=== PATIENT | female | born 1960 | race Caucasian/White ===

== ENCOUNTER 2018-07-01 13:35 | Emergency (ER) | payer BC, OTHER ==
[2018-07-01] MEDS ORDERED: Sodium Chloride 0.9% 1000 ML 1,000 ML IV STA ×2 (14:05→15:31)
[2018-07-01] MEDS ORDERED: solu-MEDROL 125 MG IV ONE (14:05)
--- NOTE | 2018-07-01 14:05 | ERPHSYRPT ---
- History of Present Illness Time Seen by Provider: 07/01/18 13:55 Source: patient Exam Limitations: no limitations Patient Subjective Stated Complaint: n/v/d sunday night,sob due to congestion, weak,aches,vomited last sat morning, pt is drinking well Triage Nursing Assessment: pt alert, resp easy, skin w/d/p, abd soft, no edema, cough nonproductive Physician History: 58 y/o white female presents with 2 day h/o first n/v, followed by coughing, myalgias, arthralgias. family members have similar sx. no diarrhea. Timing/Duration: day(s) (2) Cough Quality/Degree: moderate, dry cough Possible Cause: no prior episodes Modifying Factors: Improves With: coughing Associated Symptoms: chest pain/soreness (with cough), wheezing International travel in last 2 weeks: No Allergies/Adverse Reactions: No Known Drug Allergies Allergy (Unverified 07/01/18 13:52) Home Medications: Aspirin EC 325 mg [Ecotrin 325 MG] 325 mg DAILY 07/01/18 [History] Losartan Potassium 50 mg [Cozaar 50 MG] 50 mg DAILY 07/01/18 [History] Hx Tetanus, Diphtheria Vaccination/Date Given: No Hx Influenza Vaccination/Date Given: No Hx Pneumococcal Vaccination/Date Given: No Immunizations Up to Date: Yes - Review of Systems Constitutional: No Symptoms Eyes: No Symptoms Ears, Nose, & Throat: No Symptoms Respiratory: Cough Cardiac: No Symptoms Abdominal/Gastrointestinal: Nausea, Vomiting Genitourinary Symptoms: No Symptoms Musculoskeletal: No Symptoms Skin: No Symptoms Neurological: No Symptoms Psychological: No Symptoms Endocrine: No Symptoms Hematologic/Lymphatic: No Symptoms Immunological/Allergic: No Symptoms All Other Systems: Reviewed and Negative - Past Medical History Pertinent Past Medical History: Yes Neurological History: No Pertinent History ENT History: No Pertinent History Cardiac History: Hypertension Respiratory History: No Pertinent History Endocrine Medical History: No Pertinent History Musculoskeletal History: No Pertinent History GI Medical History: No Pertinent History History: No Pertinent History Psycho-Social History: No Pertinent History Female Reproductive Disorders: No Pertinent History - Past Surgical History Past Surgical History: Yes Neuro Surgical History: No Pertinent History Cardiac: No Pertinent History Respiratory: No Pertinent History Gastrointestinal: No Pertinent History Genitourinary: No Pertinent History Musculoskeletal: No Pertinent History Female Surgical History: No Pertinent History Other Surgical History: 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 - Social History Smoking Status: Never smoker Exposure to second hand smoke: No Drug Use: none Patient Lives Alone: No - Female History Hx Last Menstrual Period: post Hx Now: No - Nursing Vital Signs Nursing Vital Signs: Initial Vital Signs Temperature 99.8 F 07/01/18 13:39 Pulse Rate 115 H 07/01/18 13:39 Respiratory Rate 22 07/01/18 13:39 Blood Pressure 132/102 07/01/18 13:39 O2 Sat by Pulse Oximetry 97 07/01/18 13:39 Pain Scale Pain Intensity 4 - Physical Exam General Appearance: mild distress, alert, anxiety, obese Eye Exam: PERRL/EOMI Ears, Nose, Throat Exam: normal ENT inspection, moist mucous membranes Neck Exam: normal inspection, non-tender, supple, full range of motion Respiratory Exam: airway intact, wheezing, No chest tenderness, No respiratory distress, No accessory muscle use, No rhonchi, No stridor Cardiovascular Exam: normal heart sounds, normal peripheral pulses, tachycardia Gastrointestinal/Abdomen Exam: soft, normal bowel sounds, No tenderness, No guarding, No rebound Pelvic Exam: not done Rectal Exam: not done Back Exam: normal inspection, normal range of motion, CVA tenderness Extremity Exam: normal inspection, normal range of motion, pelvis stable Neurologic Exam: alert, oriented x 3, cooperative, test deskman II-XII nml as tested Skin Exam: normal color Lymphatic Exam: No adenopathy SpO2 Interpretation: normal SpO2: 97 O2 Delivery: Room Air - Course Nursing assessment & vital signs reviewed: Yes EKG Interpreted by Me: RATE (109), Sinus Rhythm, NORMAL AXIS, Other (no comparison ekg) Ordered Tests: Active Orders 24 hr Category Date Time Status Lube Attendant STAT Care 07/01/18 14:06 Active EKG-ER Only STAT Care 07/01/18 14:05 Active IV Insertion STAT Care 07/01/18 14:05 Active Pulse Oximetry (ED) STAT Care 07/01/18 14:05 Active CHEST 1 VIEW (PORTABLE) Stat Exams 07/01/18 14:06 Completed BLOOD CULTURE Stat Lab 07/01/18 15:05 Received BMP Stat Lab 07/01/18 14:30 Completed CBC W DIFF Stat Lab 07/01/18 14:30 Completed NT PRO BNP Stat Lab 07/01/18 14:30 Completed Peak Expiratory Flow Rate ONCE RT 07/01/18 14:19 Active Respiratory Nebulizer STAT RT 07/01/18 14:10 Completed Respiratory Therapy Assessment DAILY RT 07/01/18 14:20 Active Medication Summary Generic Name Dose Route Start Last Admin Trade Name Freq PRN Reason Stop Dose Admin Sodium Chloride 1,000 mls @ 999 mls/hr 07/01/18 15:31 07/01/18 15:44 Sodium Chloride 0.9% 1000 Ml IV 07/01/18 16:31 999 mls/hr .Q1H1M STA Administration Discontinued Medications Generic Name Dose Route Start Last Admin Trade Name Freq PRN Reason Stop Dose Admin Hydrocodone Bitart/Acetaminophen 10 ml 07/01/18 14:07 07/01/18 14:19 Hydrocodone-Acetamin 2.5-108/5 Ml Solution PO 07/01/18 14:08 10 ml STAT STA Administration Hydrocodone Bitart/Acetaminophen Confirm 07/01/18 14:17 Hydrocodone-Acetamin 2.5-108/5 Ml Solution Administered 07/01/18 14:18 Dose 10 ml .ROUTE .STK-MED ONE Albuterol Sulfate 2.5 mg 07/01/18 14:10 07/01/18 14:16 Proventil 2.5 Mg/3 Ml Neb IH 07/01/18 14:11 2.5 mg STAT ONE Administration Albuterol Sulfate 2.5 mg 07/01/18 14:10 07/01/18 15:53 Proventil 2.5 Mg/3 Ml Neb IH 07/01/18 14:11 2.5 mg STAT ONE Administration Albuterol Sulfate Confirm 07/01/18 14:11 Proventil 2.5 Mg/3 Ml Neb Administered 07/01/18 14:12 Dose 2.5 mg IH .STK-MED ONE Albuterol Sulfate Confirm 07/01/18 15:51 Proventil 2.5 Mg/3 Ml Neb Administered 07/01/18 15:52 Dose 2.5 mg IH .STK-MED ONE Sodium Chloride 1,000 mls @ 999 mls/hr 07/01/18 14:05 07/01/18 15:48 Sodium Chloride 0.9% 1000 Ml IV 07/01/18 15:05 Infused .Q1H1M STA Infusion Sodium Chloride Confirm 07/01/18 14:17 Sodium Chloride 0.9% 1000 Ml Administered 07/01/18 14:18 Dose 1,000 mls @ ud .ROUTE .STK-MED ONE Sodium Chloride Confirm 07/01/18 15:38 Sodium Chloride 0.9% 1000 Ml Administered 07/01/18 15:39 Dose 1,000 mls @ ud .ROUTE .STK-MED ONE Methylprednisolone Sodium Succinate 125 mg 07/01/18 14:05 07/01/18 14:19 Solu-Medrol 125 Mg IV 07/01/18 14:06 125 mg STAT ONE Administration Methylprednisolone Sodium Succinate Confirm 07/01/18 14:17 Solu-Medrol 125 Mg Administered 07/01/18 14:18 Dose 125 mg .ROUTE .STK-MED ONE Ondansetron HCl 4 mg 07/01/18 14:07 07/01/18 14:19 Zofran 4 Mg/2 Ml Vial IV 07/01/18 14:08 4 mg STAT ONE Administration Ondansetron HCl Confirm 07/01/18 14:17 Zofran 4 Mg/2 Ml Vial Administered 07/01/18 14:18 Dose 4 mg .ROUTE .STK-MED ONE Oseltamivir Phosphate 75 mg 07/01/18 15:31 07/01/18 15:45 Tamiflu 75mg Capsule PO 07/01/18 15:32 75 mg STAT ONE Administration Oseltamivir Phosphate Confirm 07/01/18 15:38 Tamiflu 75mg Capsule Administered 07/01/18 15:39 Dose 75 mg PO .STK-MED ONE Lab/Rad Data: Laboratory Result Diagrams 07/01/18 14:30 07/01/18 14:30 Laboratory Results 07/01/18 07/01/18 07/01/18 Range/Units 14:30 14:30 14:30 WBC 4.4 (4.0-10.5) K/mm3 RBC 4.93 (4.1-5.4) M/mm3 Hgb 15.7 (12.0-16.0) gm/dl Hct 45.9 (35-47) % MCV 93.1 (78-100) fl MCH 31.8 (26-32) pg MCHC 34.2 (32-36) g/dl RDW 13.7 (11.5-14.0) % Plt Count 165 (150-450) K/mm3 MPV 10.9 H (6-9.5) fl Gran % 77.1 H (36.0-66.0) % Eos # (Auto) 0.01 (0-0.5) Absolute Lymphs (auto) 0.54 L (1.0-4.6) Absolute Monos (auto) 0.44 (0.0-1.3) Lymphocytes % 12.4 L (24.0-44.0) % Monocytes % 10.1 (0.0-12.0) % Eosinophils % 0.2 (0.00-5.0) % Basophils % 0.2 (0.0-0.4) % Absolute Granulocytes 3.36 (1.4-6.9) Basophils # 0.01 (0-0.4) Sodium 136 L (137-145) mmol/L Potassium 3.6 (3.5-5.1) mmol/L Chloride 98 (98-107) mmol/L Carbon Dioxide 28 (22-30) mmol/L Anion Gap 13.3 (5-15) MEQ/L BUN 7 (7-17) mg/dL Creatinine 0.73 (0.52-1.04) mg/dL Estimated GFR > 60.0 ML/MIN Glucose 96 (74-106) mg/dL Calcium 9.3 (8.4-10.2) mg/dL NT-Pro-B Natriuret Pep 32.5 (0-900) pg/mL Influenza Type A Ag POSITIVE (NEGATIVE) Influenza Type B Ag NEGATIVE (NEGATIVE) RSV (PCR) NEGATIVE (Negative) - Progress Progress: improved Air Movement: good Progress Note: 07/01/18 15:39 cxr- no acute process. 07/01/18 16:14 pt states she is now hungry and thirsty. Blood Culture(s) Obtained: Yes Counseled pt/family regarding: lab results, diagnosis, need for follow-up, rad results - Departure Time of Disposition: 16:15 Departure Disposition: Home Clinical Impression: Influenza A H1N1 infection Condition: Stable Critical Care Time: No Referrals: CJ PRAJAPATI [Primary Care Provider] - Additional Instructions: drink plenty of fluids. follow up with primary doctor for further management. return to ED if symptoms worsen. Prescriptions: Albuterol 8 gm Mdi Hfa [Ventolin Hfa MDI] 8 gm IH Q4H #1 hfa.aer.ad Hydrocodone Bit/Acetaminophen [Hydrocodone-Acetaminophen Soln] 10 ml PO Q6H # 120 ml Oseltamivir 75 mg [Tamiflu 75MG Capsule] 75 mg PO BID #10 cap Prednisone 10 mg [Deltasone 10 mg] 10 mg PO TID #6 tablet
[2018-07-01] MEDS ORDERED: HYDROCODONE-ACETAMIN 2.5-108/5 ML SOLUTION PO STA (14:07)
[2018-07-01] MEDS ORDERED: Zofran 4 MG/2 ML VIAL IV ONE (14:07)
[2018-07-01] MEDS ORDERED: PROVENTIL 2.5 MG/3 ML NEB IH ONE ×4 (14:10→15:51)
[2018-07-01] MEDS ORDERED: solu-MEDROL 125 MG ONE (14:17)
[2018-07-01] MEDS ORDERED: HYDROCODONE-ACETAMIN 2.5-108/5 ML SOLUTION ONE (14:17)
[2018-07-01] MEDS ORDERED: Sodium Chloride 0.9% 1000 ML 1,000 ML ONE ×2 (14:17→15:38)
[2018-07-01] MEDS ORDERED: Zofran 4 MG/2 ML VIAL ONE (14:17)
--- NOTE | 2018-07-01 14:26 | XRAY ---
Indication: Fever, cough, and short of breath. Comparison: None Portable chest demonstrates minimal left base atelectasis/scarring. Remaining heart and lungs unremarkable. Incidental right-sided pacemaker with lead directed inferiorly and tip not included in the [id number]. Also right neck stimulator lead. Bony thorax intact with mild degenerative changes. Impression: Nonacute chest with chronic features.
[2018-07-01 14:48] LABS: BASOPHIL % 0.2 % (0.0-0.4); Basophil (Absolute #) 0.01 (0-0.4); Eosinophil % 0.2 % (0.00-5.0); Eosinophil (Absolute #) 0.01 (0-0.5); Granulocyte Absolute (ANC) 3.36 (1.4-6.9); Granulocytes % 77.1 % (36.0-66.0); Hematocrit 45.9 % (35-47); Hemoglobin 15.7 gm/dl (12.0-16.0); Lymphocyte (Absolute #) 0.54 (1.0-4.6); Lymphocytes % 12.4 % (24.0-44.0); Mean Cell Volume 93.1 fl (78-100); Mean Corpuscular Hemoglobin 31.8 pg (26-32); Mean Corpuscular Hgb Concent. 34.2 g/dl (32-36); Mean Platelet Volume 10.9 fl (6-9.5); Monocyte (Absolute #) 0.44 (0.0-1.3); Monocytes % 10.1 % (0.0-12.0); Platelet Count 165 K/mm3 (150-450); Red Blood Count 4.93 M/mm3 (4.1-5.4); Red Cell Distribution Width 13.7 % (11.5-14.0); White Blood Count 4.4 K/mm3 (4.0-10.5)
[2018-07-01 15:09] LABS: ANION GAP 13.3 MEQ/L (5-15); BLOOD UREA NITROGEN 7 mg/dL (7-17); CHLORIDE 98 mmol/L (98-107); Calcium 9.3 mg/dL (8.4-10.2); Carbon Dioxide 28 mmol/L (22-30); Creatinine 1 0.73 mg/dL (0.52-1.04); Glucose 96 mg/dL (74-106); NT PRO BNP 32.5 pg/mL (0-900); Potassium 3.6 mmol/L (3.5-5.1); SODIUM 136 mmol/L (137-145)
[2018-07-01 15:21] LABS: INFLUENZA A POSITIVE (NEGATIVE); INFLUENZA B NEGATIVE (NEGATIVE); RESPIRATORY SYNCTIAL VIRUS NEGATIVE (Negative)
[2018-07-01] MEDS ORDERED: Tamiflu 75MG Capsule PO ONE ×2 (15:31→15:38)
[2018-07-01] MEDS ORDERED: ROCEPHIN 1 Gm-D5w 50 ml Bag** 0 G/0 ML IVPB IV ONE (16:13)
[2018-07-01] MEDS ORDERED: TYLENOL EXTRA STRENGTH 500 MG PO STA (16:44)
[2018-07-01] MEDS ORDERED: TYLENOL EXTRA STRENGTH 500 MG ONE ×2 (16:46→16:50)
[2018-07-01 16:53] VITALS: BP 129/68; PULSE 110; O2SAT 93
== END 2018-07-01 17:28 | disposition home or self-care (01) ==
LOC: ED 13:35
DX: J10.1 Influenza due to other identified influenza virus with other respiratory manifestations (principal)
CPT/HCPCS: 36000; 36415; 71045; 80048; 83880; 85025; 87040; 87631; 93005; 93041; 94150; 94640; 96360; 96361; 96374; 96375; 99285; J0696; J2405; J2930; J7609; A9270-GY

== ENCOUNTER 2018-07-06 13:54 | Emergency (ER) | payer BC, OTHER ==
--- NOTE | 2018-07-06 14:18 | ERPHSYRPT ---
- History of Present Illness Time Seen by Provider: 07/06/18 14:16 Source: patient Exam Limitations: no limitations Patient Subjective Stated Complaint: pt here for increase sob since sunday, she was seen in er on sunday and has flu a . Triage Nursing Assessment: pt alert, resp easy, skin w/d/p. has wheezes throughtout, no edema noted Physician History: pt here for increase sob since sunday, she was seen in ER on sunday and has Influenza A Timing/Duration: week(s) Severity: moderate Associated Symptoms: shortness of breath, cough, headaches Allergies/Adverse Reactions: No Known Drug Allergies Allergy (Verified 07/06/18 14:10) Home Medications: Aspirin EC 325 mg [Ecotrin 325 MG] 325 mg DAILY 07/01/18 [History] Losartan Potassium 50 mg [Cozaar 50 MG] 50 mg DAILY 07/01/18 [History] Hx Tetanus, Diphtheria Vaccination/Date Given: No Hx Influenza Vaccination/Date Given: No Hx Pneumococcal Vaccination/Date Given: No Immunizations Up to Date: Yes - Review of Systems Constitutional: Fever, Chills, Weakness Eyes: No Symptoms Ears, Nose, & Throat: No Symptoms Respiratory: Cough, Wheezing, No Dyspnea Cardiac: No Chest Pain, No Edema, No Syncope Abdominal/Gastrointestinal: No Abdominal Pain, No Nausea, No Vomiting, No Diarrhea Genitourinary Symptoms: No Dysuria Musculoskeletal: No Back Pain, No Neck Pain Skin: No Rash Neurological: No Dizziness, No Focal Weakness, No Sensory Changes Psychological: No Symptoms Endocrine: No Symptoms All Other Systems: Reviewed and Negative - Past Medical History Pertinent Past Medical History: Yes Neurological History: No Pertinent History ENT History: No Pertinent History Cardiac History: Hypertension Respiratory History: No Pertinent History Endocrine Medical History: No Pertinent History Musculoskeletal History: No Pertinent History GI Medical History: No Pertinent History History: No Pertinent History Psycho-Social History: No Pertinent History Female Reproductive Disorders: No Pertinent History - Past Surgical History Past Surgical History: Yes Neuro Surgical History: No Pertinent History Cardiac: No Pertinent History Respiratory: No Pertinent History Gastrointestinal: No Pertinent History Genitourinary: No Pertinent History Musculoskeletal: No Pertinent History Female Surgical History: No Pertinent History Other Surgical History: 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 - Social History Smoking Status: Never smoker Exposure to second hand smoke: No Drug Use: none Patient Lives Alone: No - Female History Hx Last Menstrual Period: psot Hx Now: No - Nursing Vital Signs Nursing Vital Signs: Initial Vital Signs Temperature 97.5 F 07/06/18 13:58 Pulse Rate 120 H 07/06/18 13:58 Respiratory Rate 24 07/06/18 13:58 Blood Pressure 137/79 07/06/18 13:58 O2 Sat by Pulse Oximetry 92 L 07/06/18 13:58 Pain Scale Pain Intensity 0 - Physical Exam General Appearance: moderate distress, alert Eye Exam: PERRL/EOMI, eyes nml inspection Ears, Nose, Throat Exam: normal ENT inspection, TMs normal, pharynx normal, moist mucous membranes Neck Exam: normal inspection, non-tender, supple, full range of motion Respiratory Exam: diminished breath sounds, wheezing, No respiratory distress Cardiovascular Exam: regular rate/rhythm, normal heart sounds, normal peripheral pulses Gastrointestinal/Abdomen Exam: soft, normal bowel sounds, No tenderness, No mass Back Exam: normal inspection, normal range of motion, No CVA tenderness, No vertebral tenderness Extremity Exam: normal inspection, normal range of motion, pelvis stable Neurologic Exam: alert, oriented x 3, cooperative, normal mood/affect, nml cerebellar function, nml station & gait, sensation nml, No motor deficits Skin Exam: normal color, warm, dry, No rash Lymphatic Exam: No adenopathy SpO2: 94 - Course Nursing assessment & vital signs reviewed: Yes - Radiology Exams Chest X-ray Interpretation: Reviewed by me (no acute infiltrate) Ordered Tests: Active Orders 24 hr Category Date Time Status Oxygen-ED Only Nasal Cannula 2 lpm Care 07/06/18 14:11 Active CHEST 2 VIEWS (PA AND LAT) Stat Exams 07/06/18 14:12 Ordered CBC W DIFF Stat Lab 07/06/18 14:27 Completed CMP Stat Lab 07/06/18 14:27 Completed Manual Differential NC Stat Lab 07/06/18 14:27 Completed Peak Expiratory Flow Rate ONCE RT 07/06/18 14:31 Completed Respiratory Therapy Assessment DAILY RT 07/06/18 14:30 Completed Medication Summary Discontinued Medications Generic Name Dose Route Start Last Admin Trade Name Freq PRN Reason Stop Dose Admin Acetaminophen 650 mg 07/06/18 14:11 07/06/18 14:20 Tylenol 325 Mg PO 07/06/18 14:12 650 mg STAT ONE Administration Acetaminophen Confirm 07/06/18 14:20 Tylenol 325 Mg Administered 07/06/18 14:21 Dose 650 mg .ROUTE .STK-MED ONE Albuterol/Ipratropium 3 ml 07/06/18 14:11 07/06/18 14:25 Duoneb 0.5-3 Mg/3 Ml Neb IH 07/06/18 14:12 3 ml STAT ONE Administration Albuterol/Ipratropium Confirm 07/06/18 14:22 Duoneb 0.5-3 Mg/3 Ml Neb Administered 07/06/18 14:23 Dose 3 ml IH .STK-MED ONE Lab/Rad Data: Laboratory Result Diagrams 07/06/18 14:27 07/06/18 14:27 Laboratory Results 07/06/18 07/06/18 07/06/18 Range/Units 14:27 14:27 14:27 WBC 8.7 (4.0-10.5) K/mm3 RBC 4.14 (4.1-5.4) M/mm3 Hgb 13.1 (12.0-16.0) gm/dl Hct 37.7 (35-47) % MCV 91.1 (78-100) fl MCH 31.6 (26-32) pg MCHC 34.7 (32-36) g/dl RDW 13.3 (11.5-14.0) % Plt Count 224 (150-450) K/mm3 MPV 10.0 H (6-9.5) fl Segmented Neutrophils 80 H (36.0-66.0) % Lymphocytes (Manual) 18 L (24-44) % Monocytes (Manual) 1 (0.0-12.0) % Atypical Lymphocytes 1 % Toxic Granulation 1+ Platelet Estimate NORMAL (NORMAL) RBC Morphology NORMAL Sodium 136 L (137-145) mmol/L Potassium 3.4 L (3.5-5.1) mmol/L Chloride 99 (98-107) mmol/L Carbon Dioxide 29 (22-30) mmol/L Anion Gap 11.1 (5-15) MEQ/L BUN 9 (7-17) mg/dL Creatinine 0.60 (0.52-1.04) mg/dL Estimated GFR > 60.0 ML/MIN Glucose 107 H (74-106) mg/dL Calcium 9.1 (8.4-10.2) mg/dL Total Bilirubin 1.10 (0.2-1.3) mg/dL AST 20 (14-36) U/L ALT 31 (0-35) U/L Alkaline Phosphatase 124 (38-126) U/L Serum Total Protein 7.5 (6.3-8.2) g/dL Albumin 4.0 (3.5-5.0) g/dL Influenza Type A Ag NEGATIVE (NEGATIVE) Influenza Type B Ag NEGATIVE (NEGATIVE) RSV (PCR) NEGATIVE (Negative) - Progress Progress: unchanged Counseled pt/family regarding: diagnosis, need for follow-up - Departure Time of Disposition: 15:14 Departure Disposition: Home Clinical Impression: Influenza A H1N1 infection, Post-viral cough syndrome Condition: Stable Critical Care Time: No Referrals: CJ PRAJAPATI [Primary Care Provider] - Prescriptions: Hydrocod Psx/Chlor-Rigo [Tussionex Pennkinetic Susp] 5 ml PO BID #100 oralsyring MDD 20 ml
[2018-07-06] MEDS: TYLENOL 325 MG PO ONE (14:20)
[2018-07-06] MEDS ORDERED: TYLENOL 325 MG ONE (14:20)
[2018-07-06] MEDS ORDERED: DUONEB 0.5-3 MG/3 ml Neb IH ONE (14:22)
[2018-07-06] MEDS: DUONEB 0.5-3 MG/3 ml Neb IH ONE (14:25)
[2018-07-06 14:28] LABS: Hematocrit 37.7 % (35-47); Hemoglobin 13.1 gm/dl (12.0-16.0); Mean Cell Volume 91.1 fl (78-100); Mean Corpuscular Hemoglobin 31.6 pg (26-32); Mean Corpuscular Hgb Concent. 34.7 g/dl (32-36); Platelet Count 224 K/mm3 (150-450); Red Blood Count 4.14 M/mm3 (4.1-5.4); Red Cell Distribution Width 13.3 % (11.5-14.0); White Blood Count 8.7 K/mm3 (4.0-10.5)
[2018-07-06 14:38] LABS: ALKALINE PHOSPHATASE 124 U/L (38-126); ANION GAP 11.1 MEQ/L (5-15); BLOOD UREA NITROGEN 9 mg/dL (7-17); CHLORIDE 99 mmol/L (98-107); Calcium 9.1 mg/dL (8.4-10.2); Carbon Dioxide 29 mmol/L (22-30); Glucose 107 mg/dL (74-106); Potassium 3.4 mmol/L (3.5-5.1); SGOT/AST 20 U/L (14-36); SGPT/ALT 31 U/L (0-35); SODIUM 136 mmol/L (137-145); Total Protein 7.5 g/dL (6.3-8.2)
[2018-07-06 14:43] LABS: ATYPICAL LYMPHS 1 %; Lymphocytes 18 % (24-44); Monocyte 1 % (0.0-12.0); Neutrophils 80 % (36.0-66.0); Total Cells Counted 100
[2018-07-06 14:44] LABS: Platelet Estimate NORMAL (NORMAL); Toxic Granulation 1+
[2018-07-06 14:59] LABS: INFLUENZA A NEGATIVE (NEGATIVE); INFLUENZA B NEGATIVE (NEGATIVE); RESPIRATORY SYNCTIAL VIRUS NEGATIVE (Negative)
[2018-07-06 15:43] VITALS: BP 107/85; PULSE 110; O2SAT 95
--- NOTE | 2018-07-06 22:25 | XRAY ---
Indication: Short of breath. Comparison: July 01, 2018. PA/lateral chest unchanged again demonstrating minimal lingular atelectasis/scarring, right-sided pacemaker with inferior lead, and right neck stimulator lead. Remaining heart and lungs unremarkable. No new/acute findings.
== END 2018-07-06 15:41 | disposition home or self-care (01) ==
LOC: ED 13:54
DX: J10.1 Influenza due to other identified influenza virus with other respiratory manifestations (principal); R05 Cough; I10 Essential (primary) hypertension
CPT/HCPCS: 36415; 71046; 80053; 85025; 87631; 94150; 94640; 99284; A9270-GY